=== PATIENT | male | born 1945 | race Caucasian/White ===

== ENCOUNTER 2024-12-02 02:04 | Emergency (ER) | payer MEDICARE, SELFPAY ==
[2024-12-02] VITALS (14 sets, daily range): BP systolic 100–130; BP diastolic 63–77; PULSE 44–61; RESP 13–21; TEMP 36.6; O2SAT 90–93; BMI 31.7
--- NOTE | 2024-12-02 02:10 | ECG_ITS ---
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 Measurements Intervals [place] Rate: 52 P: 56 MD: 155 QRS: 4 QRSD: 101 T: 32 QT: 449 QTc: 420 Interpretive Statements SINUS BRADYCARDIA No previous ECG available for comparison Electronically Signed On 12-02-2024 22:28:52 CDT by Wali Valdez M.D. [email or web address]
--- NOTE | 2024-12-02 02:17 | XRR_ITS ---
PROCEDURE INFORMATION: Exam: XR Chest Exam date and time: 12/02/2024 2:21 AM Age: 79 years old Clinical indication: Chest pressure; C/O chest pain; Additional info: Cp TECHNIQUE: Imaging protocol: Radiologic exam of the chest. Views: 1 view. COMPARISON: No relevant prior studies available. FINDINGS: Lungs: Unremarkable. No consolidation. Pleural spaces: Unremarkable. No pleural effusion. No pneumothorax. Heart/Mediastinum: Unremarkable. No cardiomegaly. Bones/joints: Unremarkable. XR/XR chest 1V portable [id number] IMPRESSION: No acute findings.
[2024-12-02 02:23] LABS: Basophils % 0.2 %; Eosinophils # 0.1 10^3/uL (0.0-0.8); Eosinophils % 1.2 %; Hematocrit 46.2 % (37-53); Lymphocytes # 2.1 10^3/uL (0.8-4.8); Lymphocytes % 17.6 %; Mean Corpuscular HGB Conc 33.3 g/dL (30-55); Mean Corpuscular Hemoglobin 29.5 pg (27-33); Mean Corpuscular Volume 88.5 fl (82-101); Mean Platelet Volume 9.8 fL (7.4-10.4); Monocytes # 1.1 10^3/uL (0.2-0.9); Monocytes % 8.7 %; Neutrophils # 8.73 10^3/uL (1.8-7.7); Neutrophils % 71.9 %; Nucleated Red Blood Cells % 0 %; Platelet Count 195 10^3/cmm (157-399); Red Blood Count 5.22 10^6/uL (3.85-5.65); Red Cell Distribution Width 13.9 % (12.1-15.1); White Blood Count 12.15 10^3/uL (3.29-11.43)
[2024-12-02] MEDS: nitroglycerin 1 gm/inch oint Pkt 0.5 INCH TOPICAL (02:30)
[2024-12-02] MEDS: ondansetron 2 mg/ML SDV 2 mL 4 MG IVP (02:32)
[2024-12-02] MEDS: morphine 4 mg/mL SDV 1 mL 2 MG IVP (02:33)
[2024-12-02 02:35] LABS: INR 0.84 (0.8-1.2)
[2024-12-02 02:36] LABS: Partial Thromboplastin Time 29.7 SECONDS (23.9-36.7)
[2024-12-02 02:47] LABS: Troponin(5th) Baseline 15 ng/L (0-15)
[2024-12-02 02:56] LABS: Alanine Aminotransferase 23 U/L (0-41); Albumin Level 4.1 g/dL (3.5-5.2); Alkaline Phosphatase 60 U/L (40-130); Anion Gap 14.1 (5-19); Aspartate Amino Transferase 25 U/L (0-40); Blood Urea Nitrogen 14 mg/dL (8-23); Calcium 9.4 mg/dL (8.5-10.5); Carbon Dioxide 28 mmol/L (22-29); Chloride 101 mmol/L (98-107); Creatinine Clr Calc Pharmacy 80.2724; Globulin 2.7 g/dL (1.3-4.6); Glucose 110 mg/dL (65-115); NT Pro B Type Natriuretic Pept 459 pg/mL (0-450); Osmolality Calculated 289 mOsm/kg (285-295); Potassium 4.1 mmol/L (3.5-5.1); Sodium 139 mmol/L (136-145); Total Bilirubin 0.4 mg/dL (0.15-1.2); Total Protein 6.8 g/dL (6.6-8.7)
--- NOTE | 2024-12-02 03:06 | W.ED.CHESTPA ---
HPI - Chest Pain General: Chief Complaint: Chest Pain Stated Complaint: CHEST PAIN Time Seen by Provider: 12/02/24 02:10 History of Present Illness: 79-year-old male with no prior history of coronary disease. He has a history of hypertension. He tells me he had a knee scope a couple of days ago. He presents with chest discomfort since 2 PM yesterday. He presents at 2 AM this morning with continued chest discomfort. It is no better no worse. He was given aspirin in the ambulance without much relief. He rates his pain at a 5 in the front, and a 6 in the back he says. He is not overly short of breath. Related Data Home Medications ?Medication ?Instructions ?Recorded ?Confirmed aspirin 81 mg tablet,delayed 81 mg PO DAILY 09/10/24 09/10/24 release atenolol 25 mg tablet 12.5 mg PO DAILY 09/10/24 09/10/24 losartan 50 mg tablet 50 mg PO DAILY 09/10/24 09/10/24 multivitamin 1 tab PO DAILY 09/10/24 09/10/24 pravastatin 40 mg tablet 40 mg PO DAILY 09/10/24 09/10/24 Previous Rx's ?Medication ?Instructions ?Recorded amoxicillin 500 mg capsule 500 mg PO TID #30 caps 09/10/24 Allergies Allergy/AdvReac Type Severity Reaction Status Date / Time No Known Allergies Allergy Verified 12/02/24 02:12 [facility] ED PFSH: Social History Smoking and tobacco/nicotine status: never used tobacco/nicotine Physical Exam Const: COMMON NORMALS: no acute distress GENERAL APPEARANCE: cooperative; not ill appearing and not frail appearing HENMT: COMMON NORMALS: normocephalic, atraumatic and Normal external nose present HEAD & SCALP: normocephalic and atraumatic FACE & SINUS: normal facial exam and face symmetric NOSE: Normal external nose present Eye: COMMON NORMALS: Equal, round and reactive pupils present and EOMs intact bilaterally PUPIL: Yes Equal, round and reactive pupils present Neck/C-Spine: GENERAL: Yes trachea midline Chest: CHEST: Yes Symmetrical chest wall rise Resp: COMMON NORMALS: normal respiratory effort, No retractions, No use of accessory muscles and clear to auscultation bilaterally AUSCULTATION: clear to auscultation bilaterally Cardio: COMMON NORMALS: regular rate and regular rhythm RATE: regular rate RHYTHM: regular rhythm GI: COMMON NORMALS: Normal to inspection, nondistended, normoactive bowel sounds present Extremity: COMMON NORMALS: no pedal edema Neuro: [place]O COMA SCALE: document GCS findings [place] coma scale eye opening: Spontaneous [place] coma scale verbal response: Orientated [place] coma scale motor response: Obey commands [place] coma scale total score: 15 SENSORY EXAM: Yes extremities (intact) Psych: COMMON NORMALS: speech normal SPEECH: Yes normal speech Skin: COMMON NORMALS: no rashes or lesions noted GENERAL SKIN EXAM: no rashes or lesions noted Course Vital Signs: Vital signs: Vital Signs Temperature 97.9 F 12/02/24 02:06 Pulse Rate 50 L 12/02/24 06:40 Respiratory Rate 16 12/02/24 06:40 Blood Pressure 103/65 12/02/24 06:40 Pulse Oximetry 93 12/02/24 06:40 Oxygen Delivery Me thod Room Air 12/02/24 02:34 MDM - Chest Pain Medical Decision Making 79-year-old male patient with chest pain. White blood cell count is 12. BMP is normal. Chest x-ray is normal. BNP is 459. First troponin is 15. EKG shows a sinus bradycardia with no ST wave changes. Delta troponin is -3.7. His chest pain is gone. He has a brinell tester in [place]. He was encouraged to call them later today for follow-up appointment. Further outpatient testing such as stress test may be needed. He is to return for any return of his chest discomfort, any other concerning symptoms. Lab Data 12/02/24 01:49 12/02/24 01:49 Radiology Impressions Chest X-Ray 12/02/24 02:17 IMPRESSION: No acute findings. Laboratory Results WBC 12.15 10^3/uL (3.29-11.43) H 12/02/24 01:49 RBC 5.22 10^6/uL (3.85-5.65) 12/02/24 01:49 Hgb 15.40 g/dL (11.27-16.99) 12/02/24 01:49 Hct 46.2 % (37-53) 12/02/24 01:49 MCV 88.5 fl (82-101) 12/02/24 01:49 MCH 29.5 pg (27-33) 12/02/24 01:49 MCHC 33.3 g/dL (30-55) 12/02/24 01:49 RDW 13.9 % (12.1-15.1) 12/02/24 01:49 Plt Count 195 10^3/cmm (157-399) 12/02/24 01:49 MPV 9.8 fL (7.4-10.4) 12/02/24 01:49 Neut % (Auto) 71.9 % 12/02/24 01:49 Lymph % (Auto) 17.6 % 12/02/24 01:49 [place] % (Auto) 8.7 % 12/02/24 01:49 Eos % (Auto) 1.2 % 12/02/24 01:49 Baso % (Auto) 0.2 % 12/02/24 01:49 Neut # (Auto) 8.73 10^3/uL (1.8-7.7) H 12/02/24 01:49 Lymph # (Auto) 2.1 10^3/uL (0.8-4.8) 12/02/24 01:49 [place] # (Auto) 1.1 10^3/uL (0.2-0.9) H 12/02/24 01:49 Eos # (Auto) 0.1 10^3/uL (0.0-0.8) 12/02/24 01:49 Baso # (Auto) 0.0 10^3/uL (0.0-0.1) 12/02/24 01:49 Nucleated RBC % (auto) 0 % 12/02/24 01:49 Nucleated RBCs # 0.0 /100WBC 12/02/24 01:49 PT 12.10 SECONDS (12.1-14.9) 12/02/24 01:49 INR 0.84 (0.8-1.2) 12/02/24 01:49 APTT 29.7 SECONDS (23.9-36.7) 12/02/24 01:49 D-Dimer 0.57 ug/mLFEU (0-0.59) 12/02/24 01:49 Sodium 139 mmol/L (136-145) 12/02/24 01:49 Potassium 4.1 mmol/L (3.5-5.1) 12/02/24 01:49 Chloride 101 mmol/L (98-107) 12/02/24 01:49 Carbon Dioxide 28 mmol/L (22-29) 12/02/24 01:49 Anion Gap 14.1 (5-19) 12/02/24 01:49 BUN 14 mg/dL (8-23) 12/02/24 01:49 Creatinine 0.9 mg/dL (0.7-1.2) 12/02/24 01:49 GFR Calculation Not Reportable 12/02/24 01:49 Glucose 110 mg/dL (65-115) 12/02/24 01:49 Calculated Osmolality 289 mOsm/kg (285-295) 12/02/24 01:49 Calcium 9.4 mg/dL (8.5-10.5) 12/02/24 01:49 Total Bilirubin 0.4 mg/dL (0.15-1.2) 12/02/24 01:49 AST 25 U/L (0-40) 12/02/24 01:49 ALT 23 U/L (0-41) 12/02/24 01:49 Alkaline Phosphatase 60 U/L (40-130) 12/02/24 01:49 Troponin T Baseline 15 ng/L (0-15) 12/02/24 01:49 Troponin T 120 Minute 11.27 ng/L (0-15) 12/02/24 04:56 Delta Troponin T -3.73 ABS# (0-10) L 12/02/24 04:56 NT-Pro-B Natriuret Pep 459 pg/mL (0-450) H 12/02/24 01:49 Total Protein 6.8 g/dL (6.6-8.7) 12/02/24 01:49 Albumin 4.1 g/dL (3.5-5.2) 12/02/24 01:49 Globulin 2.7 g/dL (1.3-4.6) 12/02/24 01:49 All radiology interpretation(s) finalized by discharge Discharge Plan Discharge Patient Disposition: Home Clinical Impression: Chest pain Condition: Stable Prescriptions: No Action aspirin 81 mg tablet,delayed release (DR/EC) 81 mg PO DAILY losartan 50 mg tablet 50 mg PO DAILY pravastatin 40 mg tablet 40 mg PO DAILY atenolol 25 mg tablet 12.5 mg PO DAILY multivitamin Tablet 1 tab PO DAILY amoxicillin 500 mg capsule 500 mg PO TID Qty: 30 0RF Discharge Orders: Discharge ED (Routine); Ordered 12/02/24 Ordered By: José Miguel Godoy Referrals: Cruz Boswell MD [Family Provider] - 1-3 days Patient Instructions: Chest Pain (ED), Opioid Safety, Pain Management Activity Restrictions/Additional Instructions: Call your brinell tester later this morning. Let them know you were seen here with chest discomfort. They will want to see you in follow-up. More outpatient testing may be needed. Return for increasing episodes of chest pain, shortness of breath, any other concerning symptoms. Print Language: Mauritian Coding Level of Care Code ED Artificial Log Machine Operator for Cassandra Joe
[2024-12-02 03:35] LABS: D Dimer 0.57 ug/mLFEU (0-0.59)
[2024-12-02 05:33] LABS: Troponin 5 2HR 11.27 ng/L (0-15)
[2024-12-02 05:46] LABS: Troponin 5 2HR Delta -3.73 ABS# (0-10)
--- NOTE | 2024-12-02 06:41 | PC.NURSE ---
nitro paste removed from pt prior to DC
== END 2024-12-02 06:42 | disposition home or self-care (01) ==
PROVIDERS: Emergency Provider Emergency Medicine; Family Provider Internal Medicine
DX: R07.9 Chest pain, unspecified (principal); Z79.82 Long term (current) use of aspirin
CPT/HCPCS: 71045; 80053; 83880; 84484; 85025; 85378; 85610; 85730; 93005; 96374; 96375; 99285; J2270; J2405; J9999

== ENCOUNTER → 2025-04-17 07:46 | Outpatient (BNVA) | payer MEDICARE, SELFPAY | PROVIDERS: Family Provider Internal Medicine; Visit Provider Nurse Practitioner | DX: J02.9 Acute pharyngitis, unspecified (principal) | CPT/HCPCS: 87071; 87400; 87426; 87880 ==